=== PATIENT | male | born 1955 | race Caucasian/White ===

== ENCOUNTER 2019-01-28 17:38 | Emergency (ER) ==
[2019-01-28 17:48] VITALS: TEMP 98.2; BMI 28.7
[2019-01-28] MEDS ORDERED: SODIUM CHLORIDE 1,000 ML IV STA (18:02)
[2019-01-28] MEDS ORDERED: ZOFRAN 4 MG/2 ML IVP STA (18:02)
[2019-01-28] MEDS ORDERED: TORADOL IVP STA (18:03)
--- NOTE | 2019-01-28 18:05 | ED.PDOC ---
General ED Provider: Dr. MILAN HENSON Chief Complaint: Back Pain Stated Complaint: Back pain started last night - left side worse now. Hx stone 1X years ago Time Seen by Physician: 17:55 Mode of Arrival: Walk-In Information Source: Patient Primary Care Provider: NACHO CHÁVEZ Nursing and Triage Documentation Reviewed and Agree: Yes Does patient meet sepsis criteria?: No System Inflammatory Response Syndrome: Not Applicable Sepsis Protocol: For patient's 13 years and over: Temp is 96.8 and below OR 101 and greater Pulse >90 BPM Resp >20/minute Acutely Altered Mental Status Are patient's symptoms suggestive of a new infection, such as: -Pneumonia -Skin, Soft Tissue -Endocarditis -UTI -Bone, Joint Infection -Implantable Device -Acute Abdominal Infection -Wound Infection -Meningitis -Blood Stream Catheter Infection -Unknown Review of Systems - Review Of Systems Constitutional: Reports: Malaise Respiratory: Reports: No symptoms Cardiac: Reports: No symptoms GI: Reports: Nausea, Vomiting (X2) : Reports: Flank pain Musculoskeletal: Reports: Back pain Skin: Reports: No symptoms Neurological: Reports: Anxiety (with discomfort) All Other Systems: Reviewed and Negative Past Medical History - Past Medical History Previously Healthy: Yes Endocrine: Reports: Dyslipidemia Cardiovascular: Reports: CAD Respiratory: Reports: None Hematological: Reports: None Gastrointestinal: Reports: GERD Genitourinary: Reports: Kidney stones Neuro/Psych: Reports: None Musculoskeletal: Reports: Arthritis Cancer: Reports: None - Surgical History General Surgical History: Reports: Cholecystectomy, Other (Lithotripsy; L knee; L hip) - Family History Family History: Reports: Unknown - Social History Smoking Status: Current every day smoker, Heavy tobacco smoker Hx Substance Use: No Alcohol Screening: Occasionally - Immunizations Tetanus Shot up to Date: Yes Physical Exam - Physical Exam Appearance: Ill-appearing Ill-appearing: Mild Pain Distress: Moderate Eyes: TAYO, EOMI ENT: Oropharynx normal Neck: Supple Respiratory: Airway patent, Breath sounds clear, Breath sounds equal, Respirations nonlabored Cardiovascular: RRR, Pulses normal GI/: Soft, Nontender, No masses, Bowel sounds normal Musculoskeletal: Normal strength, ROM intact, No edema Skin: Warm, Dry, Normal color Neurological: Sensation intact, Motor intact, Alert, Oriented Psychiatric: Affect appropriate, Mood appropriate Re-Evaluation - Re-Evaluation Time of Re-Evaluation: 18:48 Status: Improved (Much better fater IV toradal and zofran; says feels same as prior stone) Critical Care Note - Critical Care Note Total Time (mins): 25 Course - Course Orders, Labs, Meds: Lab Review 01/28/19 18:23 Urine Color Yellow Urine Clarity Turbid Urine pH 5.0 Ur Specific [place] >=1.030 Urine Protein 3+ Urine Glucose (UA) Negative Urine Ketones Negative Urine Blood 3+ Urine Nitrite Negative Urine Bilirubin Negative Urine Urobilinogen 0.2 Ur Leukocyte Esterase Negative Urine Microscopic RBC 50-100 Ur Squamous Epith Cells 2-5 Orders Category Date Time Status URINALYSIS C & S IF INDICATED Stat LAB 01/28/19 18:23 Completed Ketorolac Tromethamine [Toradol] MEDS 01/28/19 18:03 Discontinued 15 mg IVP ONCE STA Ondansetron HCl/Pf [Zofran 4 mg/2 ml] MEDS 01/28/19 18:02 Discontinued 4 mg IVP ONCE STA Sodium Chloride 0.9% [Sodium Chloride] 1,000 ml MEDS 01/28/19 18:[address] ABD/PEL WO RENAL STONE PROT Stat RADS 01/28/19 18:29 Taken Medications Generic Name Dose Route Start Last Admin Trade Name Freq PRN Reason Stop Dose Admin Sodium Chloride 1,000 mls @ 1,000 mls/hr 01/28/19 18:02 01/28/19 18:15 Sodium Chloride IV 01/28/19 19:01 1,000 mls/hr BOLUS STA Administration Discontinued Medications Generic Name Dose Route Start Last Admin Trade Name Freq PRN Reason Stop Dose Admin Ketorolac Tromethamine 15 mg 01/28/19 18:03 01/28/19 18:17 Toradol IVP 01/28/19 18:04 15 mg ONCE STA Administration Ondansetron HCl 4 mg 01/28/19 18:02 01/28/19 18:16 Zofran 4 Mg/2 Ml IVP 01/28/19 18:03 4 mg ONCE STA Administration Vital Signs: Temp Pulse Resp BP Pulse Ox 01/28/19 18:35 164/61 H 01/28/19 17:38 98.2 F 57 L 20 230/80 H 96 Departure - Departure Time of Disposition: 19:15 Disposition: HOME SELF-CARE Discharge Problem: Renal stone Instructions: Kidney Stones (ED) Condition: Good Pt referred to PMD for follow-up: Yes (Must follow up with Primary Care and/or Urologist) IPMP verified?: No (Clinically indicated for short term CS pain control) Additional Instructions: Take medications as prescribed; follow up with primary care and/or Urologist. Keep well hydrated. Prescriptions: Hydrocodone Bit/Acetaminophen [[place] 7.5-325] 1 tab PO Q6HR PRN #12 tablet PRN Reason: pain Tamsulosin HCl [Flomax] 0.4 mg PO DAILY #10 cap.er.24h Allergies/Adverse Reactions: Allergies lovastatin Adverse Reaction (Verified 01/28/19 17:50) JOINT PAIN simvastatin [From Zocor] Adverse Reaction (Verified 01/28/19 17:50) JOINT PAIN warfarin [From Coumadin] Adverse Reaction (Verified 01/28/19 17:50) VOMTING Home Medications: Ambulatory Orders Aspirin [Aspirin EC] 81 mg PO DAILY 01/28/19 Atenolol 50 mg PO DAILY 01/28/19 Atorvastatin Calcium 40 mg PO DAILY 01/28/19 Cholecalciferol (Vitamin D3) [Vitamin D3] 2,000 unit PO DAILY 01/28/19 Clopidogrel Bisulfate [Clopidogrel] 75 mg PO DAILY 01/28/19 Esomeprazole Magnesium 40 mg PO DAILY 01/28/19 Hydrocodone Bit/Acetaminophen [[place] 7.5-325] 1 tab PO Q6HR PRN #12 tablet 01/28 Hydrocodone/Acetaminophen [Hydrocodon-Acetaminoph 7.5-325] 1 each PO DAILY 01/28 Lorazepam 0.5 mg PO BEDTIME 01/28/19 [place]-3/Dha/Epa/Fish Oil [Fish Oil 500 mg Softgel] 3 cap PO DAILY 01/28/19 Tamsulosin HCl [Flomax] 0.4 mg PO DAILY #10 cap.er.24h 01/28/19
[2019-01-28 18:36] VITALS: BP 164/61
--- NOTE | 2019-01-28 20:05 | CT ---
Exam: CT abdomen pelvis without intravenous contrast. Comparison: CT abdomen pelvis performed 03/23/2012. Reason for exam: Pain renal stone protocol. FINDINGS: No pleural effusion, or focal consolidation in the partially imaged lung bases. Image interpretation is limited by the lack of intravenous contrast. The spleen, adrenal glands, and pancreas appear grossly unremarkable. The gallbladder is not seen on the exam. Multiple renal stones are seen in the right kidney the largest measuring up to 7 mm on axial image nu mber 65. No hydronephrosis or ureterolithiasis is seen in the right kidney. There is moderate left-sided hydronephrosis and perinephric inflammatory change with multiple left re nal vascular calcifications and a 4.5 mm left renal parenchymal stone on axial image number 55. Ther e is a mild to moderate amount of left-sided perineural inflammatory change with hydroureter. There is a 3.1 mm stone in the left ureterovesicular junction. No focal small bowel dilatation or transition point. No intra-abdominal free air or pelvic free fluid. Operative changes are seen in the abdomen and pelvis. Multilevel degenerative disease is seen in the lumbosacral spine with posterior ligamentous calcifica tion most notably L4-L5. An left hip arthroplasty without evidence of hardware complication. Degenerative changes are seen in the right hip. Impression: 1. 3.1 mm stone in the left ureterovesicular junction with mild hydronephrosis and hydroureter. 2. Bilateral nephrolithiasis measuring up to 4.5 mm on the left and 7 mm on the right. 3. 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
== END 2019-01-28 20:14 | disposition home or self-care (01) ==
LOC: ED 17:38
DX: N20.0 Calculus of kidney (principal); Z87.442 Personal history of urinary calculi; F17.210 Nicotine dependence, cigarettes, uncomplicated
CPT/HCPCS: 74176; 81001; 96361; 96374; 96375; 99283